=== PATIENT | female | born 1990 | race Caucasian/White ===

== ENCOUNTER 2019-12-18 08:49 | Observation (INO) | payer OTHER ==
[2019-12-18] MEDS ORDERED: DEXAMETHASONE SOD PHOSPHATE INJ 4 MG/1 ML VIAL ONE (09:29)
[2019-12-18] MEDS ORDERED: KETOROLAC TROMETHAMINE 60 MG/2 ML SDV ONE (09:29)
[2019-12-18] MEDS ORDERED: ONDANSETRON HCL INJ/PF 4 MG/2 ML SDV ONE (09:29)
[2019-12-18] MEDS ORDERED: KETOROLAC TROMETHAMINE INJ/PF 30 MG/1 ML SDV IV ONE (09:40)
[2019-12-18] MEDS ORDERED: ONDANSETRON HCL INJ/PF 4 MG/2 ML SDV IV ONE (09:40)
[2019-12-18 09:48] LABS: APPEARANCE,URINE SLIGHTLY-CLOUDY; BILIRUBIN,URINE NEGATIVE (NEGATIVE); COLOR,URINE YELLOW; GLUCOSE, URINE 50 mg/dL (NEGATIVE); KETONES,URINE 80 mg/dL (NEGATIVE); LEUKOCYTE ESTERASE,URINE TRACE (NEGATIVE); NITRITE,URINE NEGATIVE (NEGATIVE); PROTEIN,URINE 30 mg/dL (NEGATIVE); URINE SPECIFIC GRAVITY 1.018; UROBILINOGEN,URINE NEGATIVE mg/dL (<2.0)
[2019-12-18] MEDS ORDERED: NORMAL SALINE 1000 ML 1,000 ML IV ONE (09:52)
--- NOTE | 2019-12-18 09:52 | ER Document Report ---
Entered by MIKE REYNOLDS SCRIBE 12/18/19 0941 Acting as scribe for:SARAH MARY MD ED GI/ - General Chief Complaint: Epigastric Pain Stated Complaint: ABDOMINAL PAIN Time Seen by Provider: 12/18/19 09:33 Mode of Arrival: Ambulatory Information source: Patient Notes: This 29-year-old female patient visiting the area from [place] presents to the emergency department today with complaints of upper abdominal pain which woke her up at 3:00 AM this morning. She indicates the area of most pain is in the epigastrium. Patient has had the same type of pain the last three nights. On Monday she had steak for lunch and a wrap for dinner, on Monday night she had zucchini noodles with tomato sauce, and last night she ate a chicken quesadilla. During every painful episode she has been asleep and has been awoken with the pain. She states the pain radiated to her right back once prior to arrival today. - Related Data Allergies/Adverse Reactions: No Known Allergies Allergy (Verified 12/18/19 10:08) Past Medical History - General Information source: Patient - Social History Smoking Status: Never Smoker Cigarette use (# per day): No Chew tobacco use (# tins/day): No Frequency of alcohol use: Occasional Drug Abuse: None Occupation: [employer] Worker Lives with: Family Family History: Reviewed & Not Pertinent Patient has homicidal ideation: No - Medical History Medical History: Negative Surgical Hx: Negative Review of Systems - Review of Systems Constitutional: No symptoms reported EENT: No symptoms reported Cardiovascular: No symptoms reported Respiratory: No symptoms reported Gastrointestinal: See HPI, Abdominal pain - RUQ pain radiated to back once Genitourinary: No symptoms reported Female Genitourinary: No symptoms reported Musculoskeletal: No symptoms reported Skin: No symptoms reported Hematologic/Lymphatic: No symptoms reported Neurological/Psychological: No symptoms reported -: Yes All other systems reviewed and negative Physical Exam - Vital signs Vitals: Temp Pulse Resp BP Pulse Ox 98.6 F 80 18 130/81 H 99 12/18/19 08:53 12/18/19 08:53 12/18/19 08:53 12/18/19 08:53 12/18/19 08:53 - Notes Notes: Physical Exam: General: Alert, appears well. HEENT: Normocephalic. Atraumatic. PERRL. Extraocular movements intact. Oropharynx clear. Neck: Supple. Non-tender. Respiratory: No respiratory distress. Clear and equal breath sounds bilaterally. Cardiovascular: Regular rate and rhythm. Abdominal: Right upper quadrant tenderness to palpation, no tenderness over the epigastrium. No distension. Hypoactive Bowel Sounds. Back: No gross abnormalities. Extremities: Moves all four extremities. Upper extremities: Normal inspection. Normal ROM. Lower extremities: Normal inspection. No edema. Normal ROM. Neurological: Normal cognition. AAOx4. Normal speech. Psychological: Normal affect. Normal Mood. Skin: Warm. Dry. Normal color. Course - Re-evaluation Re-evalutation: 12/18/19 11:55 Patient has acute cholecystitis with cholelithiasis without evidence of obstruction. Patient has leukocytosis suggesting that the gallbladder has become infected. Patient's last meal was about 9 PM last night, has had only a very small amount of water she drank earlier this morning. Patient is NPO and on maintenance IV fluids after receiving 1 L of normal saline bolus. - Vital Signs Vital signs: Temp Pulse Resp BP Pulse Ox 98.6 F 80 18 130/81 H 99 12/18/19 08:53 12/18/19 08:53 12/18/19 08:53 12/18/19 08:53 12/18/19 08:53 - Laboratory Result Diagrams: 12/18/19 09:58 12/18/19 10:30 Laboratory results interpreted by me: 12/18/19 12/18/19 12/18/19 09:28 09:58 10:30 WBC 21.1 H RBC 5.53 H Hgb 16.6 H Hct 49.1 H Lymph % (Auto) 4.9 L [place] % (Auto) 2.2 L Absolute Neuts (auto) 19.6 H Seg Neutrophils % 92.6 H Seg Neuts % (Manual) 93 H Band Neutrophils % 1 L Lymphocytes % (Manual) 5 L Monocytes % (Manual) 1 L Abs Neuts (Manual) 19.8 H Sodium 136.2 L Glucose 126 H Total Protein 8.4 H Urine Protein 30 H Urine Glucose (UA) 50 H Urine Ketones 80 H Ur Leukocyte Esterase TRACE H - Diagnostic Test Radiology reviewed: Reports reviewed - Ultrasound shows gallbladder wall thickening, pericholecystic fluid, multiple gallstones. Common bile duct measured 1.8 mm with no intrahepatic ductal dilatation. - Consults Dr. Dickinson Time consulted: 11:43 Consulted provider: will come to ER Discharge - Discharge Clinical Impression: Acute calculous cholecystitis Leukocytosis Qualifiers: Leukocytosis type: bandemia Qualified Code(s): D72.825 - Bandemia Condition: Stable Disposition: ADMITTED INPATIENT Admitting Provider: Surgicalist Unit Admitted: Surgical Floor I personally performed the services described in the documentation, reviewed and edited the documentation which was dictated to the scribe in my presence, and it accurately records my words and actions.
[2019-12-18 10:11] LABS: ABSOLUTE BASOPHILS # (AUTO) 0.1 10^3/uL (0.0-0.2); ABSOLUTE MONOCYTES (AUTO) 0.5 10^3/uL (0.1-1.4); ABSOLUTE NEUT (AUTO) 19.6 10^3/uL (1.7-8.2); BASOPHILS % (AUTO) 0.3 % (0-2); HEMATOCRIT 49.1 % (36.0-47.0); HEMOGLOBIN 16.6 g/dL (12.0-15.5); LYMPHOCYTES % (AUTO) 4.9 % (13-45); MEAN CORPUSCULAR HGB CONC 33.8 g/dL (32.0-36.0); MEAN CORPUSCULAR VOLUME 89 fl (80-97); MONOCYTES % (AUTO) 2.2 % (3-13); PLATELET COUNT 230 10^3/uL (150-450); RED BLOOD COUNT 5.53 10^6/uL (3.72-5.28); RED CELL DISTRIBUTION WIDTH 13.3 % (11.5-14.0); SEGMENTED NEUTROPHILS % (AUTO) 92.6 % (42-78); TOTAL CELLS COUNTED % (AUTO) 100 %; WHITE BLOOD COUNT 21.1 10^3/uL (4.0-10.5)
[2019-12-18 10:47] LABS: ABSOLUTE LYMPHOCYTES# (MANUAL) 1.1 10^3/uL (0.5-4.7); ABSOLUTE MONOCYTES # (MANUAL) 0.2 10^3/uL (0.1-1.4); BAND NEUTROPHILS % (MANUAL) 1 % (3-5); BASOPHILS % (MANUAL) 0 % (0-2); EOSINOPHILS % (MANUAL) 0 % (0-6); LYMPHOCYTES % (MANUAL) 5 % (13-45); MONOCYTES % (MANUAL) 1 % (3-13); PLATELET COMMENT ADEQUATE; SEGMENTED NEUTROPHILS % (MAN) 93 % (42-78); TOTAL CELLS COUNTED 100
[2019-12-18 10:48] LABS: PLATELET CLUMPS PRESENT; RBC MORPHOLOGY COMMENT NORMO-CYTIC/CHROMIC
[2019-12-18 11:12] LABS: ALBUMIN 4.8 g/dL (3.5-5.0); ALKALINE PHOSPHATASE 71 U/L (38-126); ANION GAP 9 (5-19); ASPARTATE AMINO TRANSFERASE 27 U/L (14-36); BILIRUBIN,TOTAL 0.5 mg/dL (0.2-1.3); BLOOD UREA NITROGEN 7 mg/dL (7-20); CARBON DIOXIDE 28 mmol/L (22-30); CHLORIDE 99 mmol/L (98-107); GLUCOSE 126 mg/dL (75-110); POTASSIUM 4.2 mmol/L (3.6-5.0); TOTAL PROTEIN 8.4 g/dL (6.3-8.2)
--- NOTE | 2019-12-18 11:25 | RADIOLOGY REPORT (SQ) ---
EXAM DESCRIPTION: U/S ABDOMEN LIMITED W/O DOP IMAGES COMPLETED DATE/TIME: 12/18/2019 11:11 am REASON FOR STUDY: RUQ abd pain COMPARISON: None. TECHNIQUE: Dynamic and static grayscale images acquired of the abdomen and recorded on PACS. Additio nal selected color Doppler and spectral images recorded. LIMITATIONS: None. FINDINGS: PANCREAS: The visualized portions of the pancreas appear normal. LIVER: Normal contour and echotexture of the liver. LIVER VASCULATURE: Normal hepatopetal directional flow in the portal veins. GALLBLADDER: The gallbladder wall is thickened measuring 6.9 mm. There are several echogenic calicea l calculi and there is pericholecystic fluid. ULTRASOUND-DETECTED CASTRO'S SIGN: Negative. INTRAHEPATIC DUCTS AND COMMON DUCT: The common bile duct measures 1.8 mm in diameter. There is no di latation of the intrahepatic bile ducts. INFERIOR VENA CAVA: Not assessed. AORTA: Not assessed. RIGHT KIDNEY: The right kidney measures 9.6 cm in length. There is no hydronephrosis. PERITONEAL AND RIGHT PLEURAL SPACE: No ascites or effusions. OTHER: No other findings. IMPRESSION: Cholelithiasis, gallbladder wall thickening or pericholecystic fluid. Despite the absen ce of a positive sonographic Castro sign these findings are concerning for an acute cholecystitis. I f clinical findings are discrepant with the sonographic findings then consider further evaluation wit h olya HAHN to confirm the diagnosis. TECHNICAL DOCUMENTATION: JOB ID: [id number] 2010 [employer]- All Rights Reserved Reading location - IP/workstation name: [email or web address]
[2019-12-18] MEDS ORDERED: PIPERACILLIN/TAZOBACTAM 3.375 GM VIAL IV ONE (11:49)
[2019-12-18] MEDS ORDERED: DEXTROSE 5%-LACTATED RINGERS 1,000 ML IV ONE (11:51)
[2019-12-18] MEDS ORDERED: MORPHINE SULFATE 10 MG/ML INJ IV PRN ×2 (14:29→20:02)
[2019-12-18] MEDS ORDERED: ONDANSETRON HCL INJ/PF 4 MG/2 ML SDV IV PRN (14:29)
[2019-12-18] MEDS ORDERED: NORMAL SALINE 1000 ML 1,000 ML IV PRN (14:29)
--- NOTE | 2019-12-18 14:55 | PDOC H&P ---
History of Present Illness Patient complains of: Right upper quadrant pain, nausea, vomiting History of Present Illness: HONEY SMITH is a 29 year old female with a 1 day history of right upper quadrant pain, nausea, and vomiting. The patient has been experiencing intermittent pain for several days, however this morning (in the early hours) she experienced severe/stabbing right upper quadrant pain. This occurred after eating mayonnaise and beef. Her pain was unrelenting. At its worst, she rates it 8 out of 10. It is accompanied by nausea and vomiting. She denies fevers or chills, chest pain, shortness of breath, headache, dizziness, orthostasis, malaise, fatigue. She has never had symptoms similar to this in the past. The pain does not radiate. Nothing makes it better. Palpation makes it worse. Past Medical History Medical History: None Past Surgical History Past Surgical History: Reports: Other - Roy tooth extraction Social History Lives with: Family Smoking Status: Never Smoker Electronic Cigarette use?: No Frequency of Alcohol Use: None Hx Recreational Drug Use: No Hx Prescription Drug Abuse: No Family History Family History: Reviewed & Not Pertinent Parental Family History Reviewed: Yes Children Family History Reviewed: Yes Sibling(s) Family History Reviewed.: Yes Medication/Allergy Home Medications: No Home Medications 12/18/19 Allergies/Adverse Reactions: No Known Allergies Allergy (Verified 12/18/19 10:08) Review of Systems Constitutional: ABSENT: chills, fatigue, fever(s), headache(s), weakness Eyes: ABSENT: visual disturbances Ears: ABSENT: hearing changes Nose, Mouth, and Throat: ABSENT: sore throat Cardiovascular: ABSENT: chest pain Respiratory: ABSENT: cough, dyspnea Gastrointestinal: PRESENT: abdominal pain, nausea, vomiting. ABSENT: hematemesis, hematochezia, melena Genitourinary: ABSENT: dysuria Musculoskeletal: ABSENT: back pain Integumentary: ABSENT: pruritus, rash Neurological: ABSENT: confusion, convulsions, dizziness Psychiatric: ABSENT: anxiety, depression Endocrine: ABSENT: cold intolerance, heat intolerance Hematologic/Lymphatic: ABSENT: easy bleeding, easy bruising Physical Exam Vital Signs: Temp Pulse Resp BP Pulse Ox 98.6 F 80 18 130/81 H 99 12/18/19 08:53 12/18/19 08:53 12/18/19 08:53 12/18/19 08:53 12/18/19 08:53 Intake & Output 12/17/19 12/18/19 12/19/19 06:59 06:59 06:59 Intake Total 1000 Balance 1000 Weight 53.9 kg General appearance: PRESENT: no acute distress, cooperative. ABSENT: disheveled Head exam: PRESENT: atraumatic, normocephalic Eye exam: PRESENT: EOMI, PERRLA. ABSENT: scleral icterus Mouth exam: ABSENT: moist Neck exam: ABSENT: meningismus, tenderness, thyromegaly, tracheal deviation Respiratory exam: PRESENT: unlabored. ABSENT: tachypnea, wheezes Cardiovascular exam: ABSENT: tachycardia Pulses: PRESENT: normal radial pulses Vascular exam: PRESENT: normal capillary refill. ABSENT: pallor GI/Abdominal exam: PRESENT: Castro's sign, soft, tenderness - right upper quadrant Rectal exam: ABSENT: deferred Extremities exam: ABSENT: clubbing Musculoskeletal exam: ABSENT: deformity Neurological exam: PRESENT: alert, awake, oriented to person, oriented to place, oriented to time, oriented to situation, CN II-XII grossly intact. ABSENT: motor sensory deficit Psychiatric exam: ABSENT: agitated, anxious, depressed Focused psych exam: ABSENT: delusional Skin exam: ABSENT: cyanosis, erythema, jaundice Results Laboratory Results: 12/18/19 09:58 12/18/19 10:30 12/18/19 12/18/19 12/18/19 09:28 09:58 09:58 WBC 21.1 H RBC 5.53 H Hgb 16.6 H Hct 49.1 H MCV 89 MCH 30.0 MCHC 33.8 RDW 13.3 Plt Count 230 Seg Neutrophils % 92.6 H Sodium Cancelled Potassium Cancelled Chloride Cancelled Carbon Dioxide Cancelled Anion Gap Cancelled BUN Cancelled Creatinine Cancelled Est GFR ( Amer) Cancelled Est GFR (Non-Af Amer) Cancelled Glucose Cancelled Calcium Cancelled Total Bilirubin Cancelled AST Cancelled Alkaline Phosphatase Cancelled Total Protein Cancelled Albumin Cancelled Lipase Cancelled Urine Color YELLOW Urine Appearance SLIGHTLY-CLOUDY Urine pH 6.0 Ur Specific [place] 1.018 Urine Protein 30 H Urine Glucose (UA) 50 H Urine Ketones 80 H Urine Blood NEGATIVE Urine Nitrite NEGATIVE Ur Leukocyte Esterase TRACE H Urine WBC (Auto) 3 Urine RBC (Auto) 1 12/18/19 10:30 WBC RBC Hgb Hct MCV MCH MCHC RDW Plt Count Seg Neutrophils % Sodium 136.2 L Potassium 4.2 Chloride 99 Carbon Dioxide 28 Anion Gap 9 BUN 7 Creatinine 0.64 Est GFR ( Amer) > 60 Est GFR (Non-Af Amer) Glucose 126 H Calcium 10.0 Total Bilirubin 0.5 AST 27 Alkaline Phosphatase 71 Total Protein 8.4 H Albumin 4.8 Lipase 64.7 Urine Color Urine Appearance Urine pH Ur Specific [place] Urine Protein Urine Glucose (UA) Urine Ketones Urine Blood Urine Nitrite Ur Leukocyte Esterase Urine WBC (Auto) Urine RBC (Auto) Impressions: Abdomen Ultrasound 12/18/19 09:41 IMPRESSION: Cholelithiasis, gallbladder wall thickening or pericholecystic fluid. Despite the absence of a positive sonographic Castro sign these findings are concerning for an acute cholecystitis. If clinical findings are discrepant with the sonographic findings then consider further evaluation with a HIDA to confirm the diagnosis. Assessment & Plan - Diagnosis (1) Acute calculous cholecystitis Is this a current diagnosis for this admission?: Yes - Time Anticipated Discharge Disposition: Home, Self Care Anticipated Discharge Timeframe: within 48 hours - Plan Summary Plan Summary: 29-year-old female with gallbladder wall thickening, pericholecystic fluid, right upper quadrant pain that is unrelenting, and gallstones. I believe the patient is experiencing acute cholecystitis. Her bilirubin is normal, and her common bile duct is normal in caliber. I have offered her surgical intervention, and she has agreed. Risks/benefits discussed, informed consent obtained, and all questions answered.
[2019-12-18] MEDS ORDERED: MIDAZOLAM 2 MG/2 ML INJ ONE ×2 (16:23→19:26)
[2019-12-18] MEDS ORDERED: FENTANYL CITRATE INJ/PF 250 MCG/5 ML AMPULE ONE (16:23)
[2019-12-18] MEDS ORDERED: MORPHINE SULFATE 10 MG/ML INJ ONE (16:24)
[2019-12-18] MEDS ORDERED: PROPOFOL INJ 200 MG/20 ML VIAL IV ONE (16:24)
[2019-12-18] MEDS ORDERED: BUPIVACAINE HCL 0.25 % INJ/PF (2.5 MG/1 ML) 30 ML VIAL ONE (16:34)
[2019-12-18] MEDS ORDERED: FENTANYL CITRATE INJ/PF 100 MCG/2 ML AMPUL ONE (19:26)
[2019-12-18] MEDS ORDERED: DIPHENHYDRAMINE HCL 50 MG/ML VIAL IV PRN (20:02)
[2019-12-18] MEDS ORDERED: PROMETHAZINE HCL INJ 25 MG/1 ML VIAL IV PRN (20:02)
[2019-12-18] MEDS ORDERED: MEPERIDINE HCL/PF INJ 25 MG/1 ML DISP.SYRIN IV PRN (20:02)
[2019-12-18] MEDS ORDERED: FENTANYL CITRATE INJ/PF 100 MCG/2 ML AMPUL IV PRN ×3 (20:02)
[2019-12-18] MEDS ORDERED: HYDROCODONE/ACETAMINOPHEN 10-325 MG TABLET PO PRN (21:29)
--- NOTE | 2019-12-18 21:50 | Operative Report ---
Nonrecallable Operative Report DATE OF SURGERY: 12/18/19 PREOPERATIVE DIAGNOSIS: Acute cholecystitis POSTOPERATIVE DIAGNOSIS: Same as above OPERATION: Laparoscopic cholecystectomy SURGEON: RYANN CASSIDY ANESTHESIA: GA TISSUE REMOVED OR ALTERED: Gallbladder COMPLICATIONS: None apparent ESTIMATED BLOOD LOSS: 30 cc PROCEDURE: Drains/implants: 15 Kazakh round Martinez drain. Procedure in detail: After informed consent was obtained, the patient was brought to the operating room and laid in the supine position. The area of the abdomen was prepped and draped in a normal sterile fashion. Curvilinear infraumbilical incision was created with a 15 blade scalpel. Dissection was carried through the subcutaneous tissues using sharp and blunt dissection. The cicatrix was identified, grasped with a Davian clamp, and retracted upwards. The linea alba fascia was incised sharply, the abdomen was entered sharply. The balloon trocar was inserted, and pneumoperitoneum was achieved. A subxiphoid 5 mm port was then placed under direct laparoscopic visualization. 2 more 5 mm ports were placed in the right upper quadrant in similar fashion. Atraumatic graspers were placed through the 5 mm ports. The gallbladder was retracted cephalad and laterally. The gallbladder was tense and distended. Secondary to this a cyst aspiration needle was used to aspirate a large amount of purulent appearing bile from the dome of the gallbladder. Once this was completed retraction and manipulation was much easier. The dissection was begun in the triangle of [place]. The cystic duct and cystic artery were fully visualized and skeletonized, seeing the liver through the triangle. Once the critical view of safety was obtained, the cystic duct and cystic artery were clipped and cut with laparoscopic instruments. The gallbladder was then removed from liver using Bovie electrocautery. The gallbladder was placed into an Endo Catch bag, and pulled out through the umbilicus. The camera was reinserted. Hemostasis was achieved using electrocautery on the liver bed. The hilum was then inspected. It was found to be free of any leakage of blood or bile. Once this was confirmed, a 15 Kazakh round Martinez drain was placed into the abdomen through the lateralmost port. It was situated into the gallbladder fossa. The 5 mm trochars were then removed. The drain was sutured into place using 2-0 nylon suture. The infraumbilical trocar was removed, and pneumoperitoneum was relieved. The infraumbilical fascia was closed using 0 Vicryl suture in [id number] fashion. The overlying skin was closed using 4-0 Vicryl Rapide suture in interrupted subcuticular fashion. Dressings were placed, and the procedure was concluded. All sponge, instrument, and needle counts were correct times 2. Condition: Stable.
[2019-12-18] MEDS: PIPERACILLIN SODIUM/TAZOBACTAM 3.375 GM in NORMAL SALINE 100 ML IV SCH (22:21)
[2019-12-18] MEDS: KETOROLAC TROMETHAMINE INJ/PF 30 MG/1 ML SDV IV SCH (23:08)
[2019-12-18] MEDS: FAMOTIDINE INJ/PF 20 MG/2 ML SDV IV SCH (23:09)
[2019-12-19] MEDS: PIPERACILLIN SODIUM/TAZOBACTAM 3.375 GM in NORMAL SALINE 100 ML IV SCH ×2 (01:30→05:27)
[2019-12-19] MEDS: KETOROLAC TROMETHAMINE INJ/PF 30 MG/1 ML SDV IV SCH (05:21)
[2019-12-19 06:07] LABS: ABSOLUTE LYMPHOCYTES (AUTO) 1.1 10^3/uL (0.5-4.7); ABSOLUTE MONOCYTES (AUTO) 0.8 10^3/uL (0.1-1.4); ABSOLUTE NEUT (AUTO) 9.6 10^3/uL (1.7-8.2); BASOPHILS % (AUTO) 0.1 % (0-2); HEMATOCRIT 42.5 % (36.0-47.0); LYMPHOCYTES % (AUTO) 9.7 % (13-45); MEAN CORPUSCULAR HEMOGLOBIN 29.8 pg (27.0-33.4); MEAN CORPUSCULAR HGB CONC 33.6 g/dL (32.0-36.0); MEAN CORPUSCULAR VOLUME 89 fl (80-97); MONOCYTES % (AUTO) 6.7 % (3-13); PLATELET COUNT 176 10^3/uL (150-450); RED BLOOD COUNT 4.79 10^6/uL (3.72-5.28); RED CELL DISTRIBUTION WIDTH 13.6 % (11.5-14.0); SEGMENTED NEUTROPHILS % (AUTO) 83.5 % (42-78); TOTAL CELLS COUNTED % (AUTO) 100 %; WHITE BLOOD COUNT 11.4 10^3/uL (4.0-10.5)
[2019-12-19 06:22] LABS: HEMOGLOBIN 14.3 g/dL (12.0-15.5)
[2019-12-19 06:27] LABS: ALBUMIN 3.5 g/dL (3.5-5.0); ALKALINE PHOSPHATASE 63 U/L (38-126); ANION GAP 8 (5-19); ASPARTATE AMINO TRANSFERASE 158 U/L (14-36); BILIRUBIN,TOTAL 1.3 mg/dL (0.2-1.3); BLOOD UREA NITROGEN 6 mg/dL (7-20); CALCIUM 8.8 mg/dL (8.4-10.2); CARBON DIOXIDE 24 mmol/L (22-30); CHLORIDE 103 mmol/L (98-107); GLUCOSE 107 mg/dL (75-110); TOTAL PROTEIN 6.7 g/dL (6.3-8.2)
--- NOTE | 2019-12-19 08:22 | PDOC DISCHARGE SUMMARY ---
General - Admit/Disc Date/PCP Admission Date/Primary Care Provider: 12/18/19 14:41 Discharge Date: 12/19/19 - Discharge Diagnosis Final Diagnosis: acute cholecystitis - Assessment Summary: 29-year-old female admitted to the hospital with acute cholecystitis. She underwent laparoscopic cholecystectomy for severe acute cholecystitis. She was transferred to the floor in stable condition. She is ambulating, tolerating a diet, and her pain is controlled with pain medications. At this time it is felt that she has reached maximal hospital benefit, and is fit for discharge. - Additional Information Resuscitation Status: Full Code Discharge Diet: As Tolerated Discharge Activity: Balance Activity w/Rest, No Lifting Over 10 Pounds, No Lifting/Push/Pulling Referrals: LOCALMD,NO [NO LOCAL MD] - Prescriptions: Ibuprofen [Motrin 800 mg Tablet] 800 mg PO MEALS #42 tablet Hydrocodone/Acetaminophen [[place] 10-325 mg Tablet] 1 tab PO Q6HP PRN #14 tablet PRN Reason: For Pain Home Medications: Hydrocodone/Acetaminophen [[place] 10-325 mg Tablet] 1 tab PO Q6HP PRN #14 tablet 12/19/19 Ibuprofen [Motrin 800 mg Tablet] 800 mg PO MEALS #42 tablet 12/19/19 History of Present Illiness History of Present Illness: HONEY SMITH is a 29 year old female with a 1 day history of right upper quadrant pain, nausea, and vomiting. The patient has been experiencing intermittent pain for several days, however this morning (in the early hours) she experienced severe/stabbing right upper quadrant pain. This occurred after eating mayonnaise and beef. Her pain was unrelenting. At its worst, she rates it 8 out of 10. It is accompanied by nausea and vomiting. She denies fevers or chills, chest pain, shortness of breath, headache, dizziness, orthostasis, malaise, fatigue. She has never had symptoms similar to this in the past. The pain does not radiate. Nothing makes it better. Palpation makes it worse. Physical Exam Vital Signs: Temp Pulse Resp BP Pulse Ox 98.6 F 81 16 123/64 100 12/19/19 02:15 12/19/19 02:15 12/19/19 02:15 12/19/19 02:15 12/19/19 02:15 Intake & Output 12/18/19 12/19/1912/19/20 06:59 06:59 06:59 Intake Total 2950 Output Total 30 Balance 2920 Weight 53.9 kg Results Laboratory Results: WBC 11.4 10^3/uL (4.0-10.5) H 12/19/19 04:56 RBC 4.79 10^6/uL (3.72-5.28) 12/19/19 04:56 Hgb 14.3 g/dL (12.0-15.5) D 12/19/19 04:56 Hct 42.5 % (36.0-47.0) 12/19/19 04:56 MCV 89 fl (80-97) 12/19/19 04:56 MCH 29.8 pg (27.0-33.4) 12/19/19 04:56 MCHC 33.6 g/dL (32.0-36.0) 12/19/19 04:56 RDW 13.6 % (11.5-14.0) 12/19/19 04:56 Plt Count 176 10^3/uL (150-450) 12/19/19 04:56 Lymph % (Auto) 9.7 % (13-45) L 12/19/19 04:56 [place] % (Auto) 6.7 % (3-13) 12/19/19 04:56 Eos % (Auto) 0.0 % (0-6) 12/19/19 04:56 Baso % (Auto) 0.1 % (0-2) 12/19/19 04:56 Absolute Neuts (auto) 9.6 10^3/uL (1.7-8.2) H 12/19/19 04:56 Absolute Lymphs (auto) 1.1 10^3/uL (0.5-4.7) 12/19/19 04:56 Absolute Monos (auto) 0.8 10^3/uL (0.1-1.4) 12/19/19 04:56 Absolute Eos (auto) 0.0 10^3/uL (0.0-0.6) 12/19/19 04:56 Absolute Basos (auto) 0.0 10^3/uL (0.0-0.2) 12/19/19 04:56 Total Counted 100 12/18/19 09:58 Seg Neutrophils % 83.5 % (42-78) H 12/19/19 04:56 Seg Neuts % (Manual) 93 % (42-78) H 12/18/19 09:58 Band Neutrophils % 1 % (3-5) L 12/18/19 09:58 Lymphocytes % (Manual) 5 % (13-45) L 12/18/19 09:58 Monocytes % (Manual) 1 % (3-13) L 12/18/19 09:58 Eosinophils % (Manual) 0 % (0-6) 12/18/19 09:58 Basophils % (Manual) 0 % (0-2) 12/18/19 09:58 Abs Neuts (Manual) 19.8 10^3/uL (1.7-8.2) H 12/18/19 09:58 Abs Lymphs (Manual) 1.1 10^3/uL (0.5-4.7) 12/18/19 09:58 Abs Monocytes (Manual) 0.2 10^3/uL (0.1-1.4) 12/18/19 09:58 Absolute Eos (Manual) 0.0 10^3/uL (0.0-0.6) 12/18/19 09:58 Abs Basophils (Manual) 0.0 10^3/uL (0.0-0.2) 12/18/19 09:58 Clumped Platelets PRESENT 12/18/19 09:58 Platelet Comment ADEQUATE 12/18/19 09:58 RBC Morph Comment NORMO-CYTIC/CHROMIC 12/18/19 09:58 Sodium 135.2 mmol/L (137-145) L 12/19/19 04:56 Potassium 4.0 mmol/L (3.6-5.0) 12/19/19 04:56 Chloride 103 mmol/L (98-107) 12/19/19 04:56 Carbon Dioxide 24 mmol/L (22-30) 12/19/19 04:56 Anion Gap 8 (5-19) 12/19/19 04:56 BUN 6 mg/dL (7-20) L 12/19/19 04:56 Creatinine 0.62 mg/dL (0.52-1.25) 12/19/19 04:56 Est GFR ( Amer) > 60 (>60) 12/19/19 04:56 Est GFR (Non-Af Amer) Cancelled 12/18/19 09:58 Est GFR (MDRD) Non-Af > 60 (>60) 12/19/19 04:56 Glucose 107 mg/dL (75-110) 12/19/19 04:56 Calcium 8.8 mg/dL (8.4-10.2) 12/19/19 04:56 Total Bilirubin 1.3 mg/dL (0.2-1.3) 12/19/19 04:56 Direct Bilirubin 0.0 mg/dL (0.0-0.4) 12/19/19 04:56 Neonat Total Bilirubin Not Reportable 12/19/19 04:56 Neonat Direct Bilirubin Not Reportable 12/19/19 04:56 Neonat Indirect Bili Not Reportable 12/19/19 04:56 AST 158 U/L (14-36) H 12/19/19 04:56 ALT 112 U/L (<35) H 12/19/19 04:56 Alkaline Phosphatase 63 U/L (38-126) 12/19/19 04:56 Total Protein 6.7 g/dL (6.3-8.2) 12/19/19 04:56 Albumin 3.5 g/dL (3.5-5.0) 12/19/19 04:56 Lipase 64.7 U/L (23-300) 12/18/19 10:30 EGFR Cancelled 12/18/19 09:58 Urine Color YELLOW 12/18/19 09:28 Urine Appearance SLIGHTLY-CLOUDY 12/18/19 09:28 Urine pH 6.0 (5.0-9.0) 12/18/19 09:28 Ur Specific [place] 1.018 12/18/19 09:28 Urine Protein 30 mg/dL (NEGATIVE) H 12/18/19 09:28 Urine Glucose (UA) 50 mg/dL (NEGATIVE) H 12/18/19 09:28 Urine Ketones 80 mg/dL (NEGATIVE) H 12/18/19 09:28 Urine Blood NEGATIVE (NEGATIVE) 12/18/19 09:28 Urine Nitrite NEGATIVE (NEGATIVE) 12/18/19 09:28 Urine Bilirubin NEGATIVE (NEGATIVE) 12/18/19 09:28 Urine Urobilinogen NEGATIVE mg/dL (<2.0) 12/18/19 09:28 Ur Leukocyte Esterase TRACE (NEGATIVE) H 12/18/19 09:28 Urine WBC (Auto) 3 /HPF 12/18/19 09:28 Urine RBC (Auto) 1 /HPF 12/18/19 09:28 Squamous Epi Cells Auto 4 /HPF 12/18/19 09:28 Urine Mucus (Auto) MOD /LPF 12/18/19 09:28 Urine Ascorbic Acid NEGATIVE (NEGATIVE) 12/18/19 09:28 Urine HCG, Qual NEGATIVE (NEGATIVE) 12/18/19 09:28 SARS-CoV-2 (PCR) NEGATIVE (NEGATIVE) 12/18/19 17:27 Impressions: Abdomen Ultrasound 12/18/19 09:41 IMPRESSION: Cholelithiasis, gallbladder wall thickening or pericholecystic fluid. Despite the absence of a positive sonographic Castro sign these findings are concerning for an acute cholecystitis. If clinical findings are discrepant with the sonographic findings then consider further evaluation with a HIDA to confirm the diagnosis.
[2019-12-19 08:51] VITALS: BP 131/78
[2019-12-19] MEDS: FAMOTIDINE INJ/PF 20 MG/2 ML SDV IV SCH (09:21)
== END 2019-12-19 09:44 | disposition home or self-care (01) ==
LOC: ER 08:49 → EH 14:41 → 4N 22:13
PROVIDERS: ATTEND Surgery
DX: K80.12 Calculus of gallbladder with acute and chronic cholecystitis without obstruction (principal); D72.825 Bandemia; Z03.818 Encounter for observation for suspected exposure to other biological agents ruled out
CPT/HCPCS: 47562; 99285; 96361; 96375; 96365; 36415 ×2; 87040; 83690; 85025 ×2; 87635; 81025; 80053 ×2; 81001; 88304 ×2; 76705; 94799; 99140; 00790; G0378 ×3; J2250; J1100; J1885 ×3; J3010; J2405; J7121; J7050; J7030; S0028; J2543 ×2; C9803; 790; J2270; J2704